=== PATIENT | female | born 1940 | race Caucasian/White ===

== ENCOUNTER 2020-01-10 10:11 | Inpatient (IN) ==
[2020-01-10] MEDS ORDERED: SODIUM CHLORIDE 0.9% 1,000 ML IV STA ×2 (10:27→14:33)
[2020-01-10] MEDS ORDERED: ROCURONIUM 100 MG/10 ML VIAL IV ONE (10:33)
[2020-01-10] MEDS ORDERED: VECURONIUM 10 MG VIAL IV ONE (10:33)
[2020-01-10] MEDS ORDERED: ETOMIDATE 20 MG/10 ML VIAL IV ONE (10:33)
[2020-01-10 10:53] LABS: ABG Base Excess 3.4 MMOL/L (-2.5-2.5); ABG HCO3 27.4 MMOL/L (20-26); ABG PCO2 34.9 MM HG (35-48); ABG PH 7.489 (7.35-7.45); ABG TCO2 23.7 MMOL/L (23-27)
[2020-01-10] MEDS ORDERED: ONDANSETRON 4 MG/2 ML VIAL IV PRN (11:21)
[2020-01-10] MEDS ORDERED: ACETAMINOPHEN 325 MG TABLET PO PRN (11:21)
[2020-01-10 11:25] LABS: Apearance,Urine CLOUDY (Clear); Bacteria,Urine Occasional /HPF (Few); Bilirubin,Urine Negative (Negative); Blood, Urine Small mg/dL (Negative); Glucose,Urine (UA) Negative (Negative); Hyaline Casts,Urine 3 /LPF (0-3); Ketones,Urine 5 mg/dL (Negative); Mucus,Urine Many /LPF (Occasional); Nitrite,Urine Negative (Negative); Protein,Urine 100 MG/DL; RBC,Urine 3 /HPF (0-4); Squamous Epithelial Cell,Urine Occasional /HPF (0-10); Urine Color Yellow (Yellow); Urine Specific Gravity 1.019 (1.001-1.035); Urine Urobilinogen < 2.0 EU/DL (0.2-1.0); WBC,Urine 1 /HPF (0-6)
[2020-01-10] MEDS ORDERED: niCARdipine INJ 25 MG in SODIUM CHLORIDE 0.9% 240 ML IV SCH (11:30)
[2020-01-10 11:35] LABS: Basophils % 0.3 % (0.0-0.8); Eosinophils % 0.2 % (0.00-10.9); Hematocrit 34.7 VOL% (35.7-47.0); Immature Granulocytes % 0.4 %; Immature Granulocytes Absolute 0.05 #; Lymphocytes # 3.1 10*3/uL (1.4-4.0); Lymphocytes % 22.2 % (21.3-54.2); Mean Corpuscular HGB Conc 29.7 GM/DL (32-36); Mean Corpuscular Volume 70.2 FL (87-102); Mean Platelet Volume 11.4 FL (9.6-12.0); Monocytes % 6.3 % (1.7-12.7); Neutrophils % 70.6 % (38.7-73.9); Platelet Count 489 T/CUMM (130-400); Red Blood Count 4.94 MC/CUMM (3.8-5.5); Red Cell Distribution Width 18.8 % (9.3-17.3); White Blood Count 13.9 T/CUMM (4-12)
[2020-01-10 11:36] LABS: Barbiturates Screen,Urine Negative (Negative); Benzodiazepines Screen,Urine Negative (Negative); Cannabinoid Screen,Urine Negative (Negative); Opiate Screen,Urine Negative (Negative); Phencyclidine Screen,Urine Negative (Negative)
[2020-01-10 11:37] LABS: PT Patient Result 10.5 SECS (9.8-11.9)
[2020-01-10 11:40] LABS: Hemoglobin 10.3 GM/DL (12.0-16.0)
[2020-01-10 11:42] LABS: Alanine Aminotransferase 19 U/L (13-56); Albumin 3.3 G/DL (3.4-5.0); Alkaline Phosphatase 87 U/L (45-117); Aspartate Amino Transferase 27 U/L (0-37); Blood Urea Nitrogen 12 MG/DL (7-18); Calcium 8.7 MG/DL (8.5-10.1); Estimated Glom Filtration Rate 90 ML/MIN; Glucose 134 MG/DL (74-106); Osmolality,Calculated 276.7 MOS/KG (273-304); Total Protein 7.5 G/DL (6.4-8.3)
[2020-01-10 11:58] LABS: Hypochromasia 2+; Microcytosis 1+
[2020-01-10 11:59] LABS: Platelet Estimate Increased
[2020-01-10] MEDS ORDERED: niCARdipine INJ 25 MG in SODIUM CHLORIDE 0.9% 240 ML IV PRN (12:00)
[2020-01-10] MEDS ORDERED: LORazepam 2 MG/1 ML VIAL IV STA (14:33)
[2020-01-10] MEDS: PANTOPRAZOLE 40 MG VIAL IV SCH (14:40)
[2020-01-10] MEDS ORDERED: MIDAZOLAM 100 MG in SODIUM CHLORIDE 0.9% 80 ML IV PRN (17:15)
[2020-01-10] MEDS: LACTATED RINGERS 1,000 ML IV SCH (17:39)
[2020-01-10] MEDS: ATORVASTATIN 80 MG TABLET PO SCH (20:37)
[2020-01-10] MEDS: AMITRIPTYLINE 50 MG TABLET PO SCH (20:37)
[2020-01-10] MEDS ORDERED: ENOXAPARIN 40 MG/0.4 ML SYRINGE SUBCUT SCH (21:00)
[2020-01-11] MEDS: LACTATED RINGERS 1,000 ML IV SCH ×2 (03:41→22:33)
[2020-01-11 04:39] LABS: ABG Base Excess 2.8 MMOL/L (-2.5-2.5); ABG HCO3 26.9 MMOL/L (20-26); ABG Oxygen Saturation 99.8 % (95-100); ABG PCO2 36.2 MM HG (35-48); ABG PH 7.471 (7.35-7.45); ABG TCO2 24.2 MMOL/L (23-27); Allen Test Positive; Pt O2 Delivery Device Ventilator
[2020-01-11 06:33] LABS: Basophils # 0.1 10*3/uL (0.0-0.2); Basophils % 0.3 % (0.0-0.8); Eosinophils # 0.1 10*3/uL (0.0-0.87); Eosinophils % 0.3 % (0.00-10.9); Hematocrit 30.8 VOL% (35.7-47.0); Hemoglobin 9.1 GM/DL (12.0-16.0); Immature Granulocytes % 0.5 %; Immature Granulocytes Absolute 0.09 #; Lymphocytes # 3.9 10*3/uL (1.4-4.0); Lymphocytes % 21.8 % (21.3-54.2); Mean Corpuscular HGB Conc 29.5 GM/DL (32-36); Mean Corpuscular Volume 70.6 FL (87-102); Mean Platelet Volume 10.8 FL (9.6-12.0); Monocytes % 9.6 % (1.7-12.7); Neutrophils % 67.5 % (38.7-73.9); Platelet Count 430 T/CUMM (130-400); Red Blood Count 4.36 MC/CUMM (3.8-5.5); Red Cell Distribution Width 18.4 % (9.3-17.3); White Blood Count 17.9 T/CUMM (4-12)
[2020-01-11 06:57] LABS: Albumin 2.5 G/DL (3.4-5.0); Bilirubin,Total 0.9 MG/DL (0.2-1.0); Calcium 7.5 MG/DL (8.5-10.1); Osmolality,Calculated 277.5 MOS/KG (273-304); Risk Ratio 3.52; Total Protein 6.3 G/DL (6.4-8.3); VLDL CHOLESTEROL 51.6 MG/DL
[2020-01-11] MEDS ORDERED: POTASSIUM CHLORIDE INJ 80 MEQ in SODIUM CHLORIDE 0.9% 1,000 ML IV ONE (08:00)
[2020-01-11] MEDS: METOPROLOL TARTRATE 25 MG TABLET PO SCH ×2 (10:24→21:25)
[2020-01-11] MEDS: PANTOPRAZOLE 40 MG VIAL IV SCH (10:31)
[2020-01-11 13:32] LABS: Troponin I 0.899 NG/ML (0.00-0.045)
[2020-01-11 16:36] LABS: Troponin I 0.798 NG/ML (0.00-0.045)
[2020-01-11] MEDS: ENOXAPARIN 80 MG/0.8 ML SYRINGE SUBCUT SCH (21:25)
[2020-01-11] MEDS: AMITRIPTYLINE 50 MG TABLET PO SCH (21:25)
[2020-01-11] MEDS: ATORVASTATIN 80 MG TABLET PO SCH (21:25)
[2020-01-12 05:00] LABS: Basophils % 0.3 % (0.0-0.8); Eosinophils # 0.2 10*3/uL (0.0-0.87); Eosinophils % 1.6 % (0.00-10.9); Hematocrit 28.4 VOL% (35.7-47.0); Hemoglobin 8.2 GM/DL (12.0-16.0); Immature Granulocytes % 0.4 %; Immature Granulocytes Absolute 0.05 #; Lymphocytes % 30.5 % (21.3-54.2); Mean Corpuscular HGB Conc 28.9 GM/DL (32-36); Mean Corpuscular Volume 71.9 FL (87-102); Mean Platelet Volume 11.5 FL (9.6-12.0); Monocytes % 9.9 % (1.7-12.7); Neutrophils % 57.3 % (38.7-73.9); Platelet Count 374 T/CUMM (130-400); Red Blood Count 3.95 MC/CUMM (3.8-5.5); Red Cell Distribution Width 18.6 % (9.3-17.3); White Blood Count 13.2 T/CUMM (4-12)
[2020-01-12 05:09] LABS: Hypochromasia 1+; Microcytosis 1+; Ovalocytes Slight; Polychromasia Slight
[2020-01-12 05:10] LABS: Platelet Estimate Normal
[2020-01-12 05:17] LABS: ABG Base Excess 0.3 MMOL/L (-2.5-2.5); ABG Oxygen Saturation 99.4 % (95-100); ABG PCO2 35.4 MM HG (35-48); ABG PH 7.449 (7.35-7.45); ABG PO2 416.1 MM HG (80-95); ABG TCO2 25.1 MMOL/L (23-27); Allen Test Positive; Pt O2 Delivery Device Ventilator
[2020-01-12 07:31] LABS: Bilirubin,Total 0.5 MG/DL (0.2-1.0); Calcium 7.5 MG/DL (8.5-10.1); Osmolality,Calculated 282.1 MOS/KG (273-304); Total Protein 5.7 G/DL (6.4-8.3)
[2020-01-12] MEDS: CLOPIDOGREL 75 MG TABLET PO SCH (08:34)
[2020-01-12] MEDS: ENOXAPARIN 80 MG/0.8 ML SYRINGE SUBCUT SCH ×2 (08:34→20:35)
[2020-01-12] MEDS: METOPROLOL TARTRATE 25 MG TABLET PO SCH ×2 (08:34→20:35)
[2020-01-12] MEDS: LACTATED RINGERS 1,000 ML IV SCH ×2 (08:38→19:06)
[2020-01-12] MEDS: PANTOPRAZOLE 40 MG VIAL IV SCH (11:47)
[2020-01-12] MEDS ORDERED: DEXTROSE 10% 250 ML BAG IV PRN (13:43)
[2020-01-12] MEDS ORDERED: GLUCAGON 1 MG VIAL IM PRN (13:43)
[2020-01-12] MEDS: INSULIN REGULAR 100 UNIT/ML SUBCUT SCH (19:06)
[2020-01-12] MEDS: ATORVASTATIN 80 MG TABLET PO SCH (20:35)
[2020-01-12] MEDS: AMITRIPTYLINE 50 MG TABLET PO SCH (20:35)
[2020-01-13] MEDS: INSULIN REGULAR 100 UNIT/ML SUBCUT SCH ×4 (00:26→18:30)
[2020-01-13 04:33] LABS: Basophils % 0.2 % (0.0-0.8); Hemoglobin 7.6 GM/DL (12.0-16.0)
[2020-01-13 04:56] LABS: ABG Base Excess 2.4 MMOL/L (-2.5-2.5); ABG HCO3 26.6 MMOL/L (20-26); ABG Oxygen Saturation 99.3 % (95-100); ABG PCO2 36.6 MM HG (35-48); ABG PH 7.462 (7.35-7.45); ABG TCO2 24.4 MMOL/L (23-27)
[2020-01-13 05:06] LABS: Alanine Aminotransferase 15 U/L (13-56); Albumin 1.9 G/DL (3.4-5.0); Alkaline Phosphatase 65 U/L (45-117); Aspartate Amino Transferase 14 U/L (0-37); Bilirubin,Total < 0.39 MG/DL (0.2-1.0); Blood Urea Nitrogen 8 MG/DL (7-18); Calcium 7.6 MG/DL (8.5-10.1); Estimated Glom Filtration Rate 105 ML/MIN; Glucose 145 MG/DL (74-106); Osmolality,Calculated 279.4 MOS/KG (273-304); Total Protein 5.7 G/DL (6.4-8.3)
[2020-01-13 05:11] LABS: Eosinophils # 0.3 10*3/uL (0.0-0.87); Hematocrit 26.7 VOL% (35.7-47.0); Immature Granulocytes % 0.6 %; Immature Granulocytes Absolute 0.08 #; Lymphocytes # 3.5 10*3/uL (1.4-4.0); Lymphocytes % 24.9 % (21.3-54.2); Mean Corpuscular HGB Conc 28.5 GM/DL (32-36); Mean Platelet Volume 11.6 FL (9.6-12.0); Monocytes % 9.1 % (1.7-12.7); Neutrophils % 63.2 % (38.7-73.9); Platelet Count 355 T/CUMM (130-400); Red Blood Count 3.61 MC/CUMM (3.8-5.5); Red Cell Distribution Width 18.8 % (9.3-17.3)
[2020-01-13] MEDS: LACTATED RINGERS 1,000 ML IV SCH (05:15)
[2020-01-13] MEDS ORDERED: MAGNESIUM SULF RIDER 4 GM in PREMIX 1 EACH IV PRN (07:31)
[2020-01-13] MEDS ORDERED: MAGNESIUM SULF RIDER 2 GM in PREMIX 1 EACH IV PRN (07:31)
[2020-01-13] MEDS: CLOPIDOGREL 75 MG TABLET PO SCH (09:15)
[2020-01-13] MEDS: METOPROLOL TARTRATE 25 MG TABLET PO SCH ×2 (09:15→20:46)
[2020-01-13] MEDS: POTASSIUM CHLORIDE 20 MEQ/15 ML UDCUP PER TUBE PRN ×4 (09:15→16:20)
[2020-01-13] MEDS: ENOXAPARIN 80 MG/0.8 ML SYRINGE SUBCUT SCH ×2 (09:28→20:46)
[2020-01-13] MEDS: PANTOPRAZOLE 40 MG VIAL IV SCH (10:29)
[2020-01-13 11:05] LABS: % Iron Saturation 2.3 % (18-50)
[2020-01-13] MEDS: AMITRIPTYLINE 50 MG TABLET PO SCH (20:46)
[2020-01-13] MEDS: ATORVASTATIN 80 MG TABLET PO SCH (20:46)
[2020-01-14] MEDS: INSULIN REGULAR 100 UNIT/ML SUBCUT SCH ×4 (00:20→18:12)
[2020-01-14 04:23] LABS: Basophils % 0.2 % (0.0-0.8); Eosinophils # 0.3 10*3/uL (0.0-0.87); Eosinophils % 2.6 % (0.00-10.9); Hematocrit 27.3 VOL% (35.7-47.0); Hemoglobin 7.8 GM/DL (12.0-16.0); Immature Granulocytes % 0.4 %; Immature Granulocytes Absolute 0.05 #; Lymphocytes # 3.2 10*3/uL (1.4-4.0); Lymphocytes % 25.8 % (21.3-54.2); Mean Corpuscular HGB Conc 28.6 GM/DL (32-36); Mean Corpuscular Volume 74.2 FL (87-102); Mean Platelet Volume 11.6 FL (9.6-12.0); Monocytes % 11.1 % (1.7-12.7); Neutrophils % 59.9 % (38.7-73.9); Platelet Count 371 T/CUMM (130-400); Red Blood Count 3.68 MC/CUMM (3.8-5.5); Red Cell Distribution Width 19.6 % (9.3-17.3); White Blood Count 12.2 T/CUMM (4-12)
[2020-01-14 04:45] LABS: Hypochromasia 1+; Platelet Estimate Adequate
[2020-01-14 04:53] LABS: Calcium 7.5 MG/DL (8.5-10.1); Osmolality,Calculated 276.7 MOS/KG (273-304)
[2020-01-14 05:27] LABS: ABG Base Excess 1.9 MMOL/L (-2.5-2.5); ABG HCO3 26.7 MMOL/L (20-26); ABG Oxygen Saturation 98.5 % (95-100); ABG PCO2 42.6 MM HG (35-48); ABG PH 7.415 (7.35-7.45); Allen Test Positive; Pt O2 Delivery Device Ventilator
[2020-01-14] MEDS ORDERED: hydrALAZINE 20 MG/1 ML VIAL IV PRN (06:50)
[2020-01-14] MEDS: METOPROLOL TARTRATE 50 MG TABLET PO SCH ×2 (08:38→20:07)
[2020-01-14] MEDS: PANTOPRAZOLE 40 MG VIAL IV SCH (13:01)
[2020-01-14] MEDS: DEXAMETHASONE 4 MG/1 ML VIAL IV SCH (18:12)
[2020-01-14] MEDS: PIPERACILLIN/TAZOBACTAM 3,375 MG in SODIUM CHLORIDE 0.9% 100 ML IV SCH (18:12)
[2020-01-14] MEDS: ATORVASTATIN 80 MG TABLET PO SCH (20:06)
[2020-01-14] MEDS: AMITRIPTYLINE 50 MG TABLET PO SCH (20:07)
[2020-01-15] MEDS: INSULIN REGULAR 100 UNIT/ML SUBCUT SCH ×4 (02:13→19:02)
[2020-01-15] MEDS: PIPERACILLIN/TAZOBACTAM 3,375 MG in SODIUM CHLORIDE 0.9% 100 ML IV SCH ×3 (02:14→18:40)
[2020-01-15 05:03] LABS: ABG Base Excess 4.5 MMOL/L (-2.5-2.5); ABG HCO3 28.4 MMOL/L (20-26); ABG Oxygen Saturation 98.7 % (95-100); ABG PCO2 43.7 MM HG (35-48); ABG PH 7.433 (7.35-7.45); Allen Test Positive; Pt O2 Delivery Device Ventilator
[2020-01-15 06:26] LABS: Calcium 7.6 MG/DL (8.5-10.1); Osmolality,Calculated 288.4 MOS/KG (273-304)
[2020-01-15] MEDS ORDERED: INSULIN GLARGINE 100 UNIT/ML SUBCUT ONE (07:49)
[2020-01-15 08:43] LABS: Basophils % 0.1 % (0.0-0.8); Eosinophils % 0.1 % (0.00-10.9); Hematocrit 27.1 VOL% (35.7-47.0); Hemoglobin 7.7 GM/DL (12.0-16.0); Immature Granulocytes % 0.8 %; Immature Granulocytes Absolute 0.08 #; Lymphocytes % 9.9 % (21.3-54.2); Mean Corpuscular HGB Conc 28.4 GM/DL (32-36); Mean Corpuscular Volume 73.6 FL (87-102); Mean Platelet Volume 12.1 FL (9.6-12.0); Monocytes % 5.6 % (1.7-12.7); Neutrophils % 83.5 % (38.7-73.9); Platelet Count 341 T/CUMM (130-400); Red Blood Count 3.68 MC/CUMM (3.8-5.5); Red Cell Distribution Width 19.6 % (9.3-17.3); White Blood Count 9.8 T/CUMM (4-12)
[2020-01-15] MEDS: METOPROLOL TARTRATE 50 MG TABLET PO SCH ×2 (09:17→20:00)
[2020-01-15 10:54] LABS: Hypochromasia 4+
[2020-01-15 10:55] LABS: Giant Platelets Few; Microcytosis 2+; Platelet Estimate Increased; Polychromasia Slight
[2020-01-15] MEDS: PANTOPRAZOLE 40 MG VIAL IV SCH (12:20)
[2020-01-15] MEDS: DEXAMETHASONE 4 MG/1 ML VIAL IV SCH (18:40)
[2020-01-15] MEDS: AMITRIPTYLINE 50 MG TABLET PO SCH (20:00)
[2020-01-15] MEDS: ATORVASTATIN 80 MG TABLET PO SCH (20:00)
[2020-01-15 20:55] LABS: Basophils % 0.2 % (0.0-0.8); Eosinophils # 0.1 10*3/uL (0.0-0.87); Eosinophils % 0.7 % (0.00-10.9); Hematocrit 25.5 VOL% (35.7-47.0); Hemoglobin 7.3 GM/DL (12.0-16.0); Immature Granulocytes % 0.4 %; Immature Granulocytes Absolute 0.05 #; Lymphocytes # 2.4 10*3/uL (1.4-4.0); Mean Corpuscular HGB Conc 28.6 GM/DL (32-36); Mean Corpuscular Volume 73.5 FL (87-102); Monocytes % 11.3 % (1.7-12.7); Neutrophils % 66.4 % (38.7-73.9); Platelet Count 364 T/CUMM (130-400); Red Blood Count 3.47 MC/CUMM (3.8-5.5); Red Cell Distribution Width 19.4 % (9.3-17.3); White Blood Count 11.4 T/CUMM (4-12)
[2020-01-16] MEDS: INSULIN REGULAR 100 UNIT/ML SUBCUT SCH ×4 (00:44→18:16)
[2020-01-16] MEDS: PIPERACILLIN/TAZOBACTAM 3,375 MG in SODIUM CHLORIDE 0.9% 100 ML IV SCH ×3 (02:13→18:16)
[2020-01-16 04:13] LABS: Basophils % 0.1 % (0.0-0.8); Hemoglobin 7.8 GM/DL (12.0-16.0); Immature Granulocytes % 1.1 %; Immature Granulocytes Absolute 0.11 #; Lymphocytes # 1.5 10*3/uL (1.4-4.0); Lymphocytes % 14.4 % (21.3-54.2); Mean Corpuscular HGB Conc 28.9 GM/DL (32-36); Mean Corpuscular Volume 71.6 FL (87-102); Mean Platelet Volume 11.6 FL (9.6-12.0); Monocytes % 6.1 % (1.7-12.7); NRBC # 0.02 10*3/uL; Neutrophils % 78.3 % (38.7-73.9); Platelet Count 378 T/CUMM (130-400); Red Blood Count 3.77 MC/CUMM (3.8-5.5); Red Cell Distribution Width 19.4 % (9.3-17.3); White Blood Count 10.2 T/CUMM (4-12)
[2020-01-16 04:29] LABS: Osmolality,Calculated 286.4 MOS/KG (273-304)
[2020-01-16 05:06] LABS: ABG Base Excess 6.6 MMOL/L (-2.5-2.5); ABG HCO3 30.5 MMOL/L (20-26); ABG Oxygen Saturation 98.8 % (95-100); ABG PH 7.453 (7.35-7.45); Allen Test Positive; Pt O2 Delivery Device Ventilator
[2020-01-16] MEDS: METOPROLOL TARTRATE 50 MG TABLET PO SCH ×2 (08:46→20:11)
[2020-01-16] MEDS: PANTOPRAZOLE 40 MG VIAL IV SCH (11:44)
[2020-01-16] MEDS: DEXAMETHASONE 4 MG/1 ML VIAL IV SCH (18:15)
[2020-01-16] MEDS: ATORVASTATIN 80 MG TABLET PO SCH (20:11)
[2020-01-16] MEDS: AMITRIPTYLINE 50 MG TABLET PO SCH (20:11)
[2020-01-16] MEDS: INSULIN GLARGINE 100 UNIT/ML SUBCUT SCH (20:12)
[2020-01-17] MEDS: INSULIN REGULAR 100 UNIT/ML SUBCUT SCH ×4 (00:48→17:20)
[2020-01-17] MEDS: PIPERACILLIN/TAZOBACTAM 3,375 MG in SODIUM CHLORIDE 0.9% 100 ML IV SCH ×3 (01:56→17:41)
[2020-01-17 03:49] LABS: Basophils % 0.2 % (0.0-0.8); Eosinophils % 0.1 % (0.00-10.9); Hematocrit 27.1 VOL% (35.7-47.0); Hemoglobin 7.7 GM/DL (12.0-16.0); Immature Granulocytes % 1.7 %; Immature Granulocytes Absolute 0.18 #; Lymphocytes # 1.7 10*3/uL (1.4-4.0); Lymphocytes % 16.3 % (21.3-54.2); Mean Corpuscular HGB Conc 28.4 GM/DL (32-36); Mean Corpuscular Volume 73.4 FL (87-102); Mean Platelet Volume 12.1 FL (9.6-12.0); Monocytes % 8.5 % (1.7-12.7); NRBC # 0.03 10*3/uL; Neutrophils % 73.2 % (38.7-73.9); Platelet Count 390 T/CUMM (130-400); Red Blood Count 3.69 MC/CUMM (3.8-5.5); Red Cell Distribution Width 19.3 % (9.3-17.3); White Blood Count 10.5 T/CUMM (4-12)
[2020-01-17 04:08] LABS: Osmolality,Calculated 286.5 MOS/KG (273-304)
[2020-01-17 04:38] LABS: ABG Base Excess 8.6 MMOL/L (-2.5-2.5); ABG HCO3 33.3 MMOL/L (20-26); ABG Oxygen Saturation 98.1 % (95-100); ABG PCO2 47.5 MM HG (35-48); ABG PH 7.463 (7.35-7.45); ABG PO2 118.2 MM HG (80-95); ABG TCO2 34.7 MMOL/L (23-27); Allen Test Positive; Pt O2 Delivery Device Ventilator
[2020-01-17] MEDS: CLOPIDOGREL 75 MG TABLET PO SCH (08:37)
[2020-01-17] MEDS: METOPROLOL TARTRATE 50 MG TABLET PO SCH ×2 (08:37→20:39)
[2020-01-17] MEDS: INSULIN GLARGINE 100 UNIT/ML SUBCUT SCH (08:40)
[2020-01-17] MEDS: PANTOPRAZOLE 40 MG VIAL IV SCH (10:30)
[2020-01-17] MEDS: DEXAMETHASONE 4 MG/1 ML VIAL IV SCH (17:41)
[2020-01-17] MEDS ORDERED: SALIVA SUBSTITUTE SPRAY 60 ML CAN SWISH/SPIT PRN (18:27)
[2020-01-17] MEDS: ATORVASTATIN 80 MG TABLET PO SCH (20:38)
[2020-01-17] MEDS: AMITRIPTYLINE 50 MG TABLET PO SCH (20:39)
[2020-01-18] MEDS: INSULIN REGULAR 100 UNIT/ML SUBCUT SCH ×4 (00:55→18:06)
[2020-01-18] MEDS: PIPERACILLIN/TAZOBACTAM 3,375 MG in SODIUM CHLORIDE 0.9% 100 ML IV SCH ×3 (02:15→21:51)
[2020-01-18 03:39] LABS: Allen Test Positive; Pt O2 Delivery Device Ventilator
[2020-01-18 03:41] LABS: ABG Base Excess 9.2 MMOL/L (-2.5-2.5); ABG HCO3 33.7 MMOL/L (20-26); ABG Oxygen Saturation 98.5 % (95-100); ABG PCO2 46.2 MM HG (35-48); ABG PH 7.481 (7.35-7.45); ABG PO2 131.1 MM HG (80-95); ABG TCO2 35.1 MMOL/L (23-27)
[2020-01-18 06:56] LABS: Basophils % 0.2 % (0.0-0.8); Eosinophils % 0.1 % (0.00-10.9); Hematocrit 28.8 VOL% (35.7-47.0); Hemoglobin 8.3 GM/DL (12.0-16.0); Immature Granulocytes % 1.8 %; Immature Granulocytes Absolute 0.18 #; Lymphocytes # 1.8 10*3/uL (1.4-4.0); Lymphocytes % 18.5 % (21.3-54.2); Mean Corpuscular HGB Conc 28.8 GM/DL (32-36); Mean Platelet Volume 12.1 FL (9.6-12.0); Monocytes % 9.5 % (1.7-12.7); NRBC # 0.03 10*3/uL; Neutrophils % 69.9 % (38.7-73.9); Platelet Count 400 T/CUMM (130-400); Red Cell Distribution Width 19.2 % (9.3-17.3); White Blood Count 9.8 T/CUMM (4-12)
[2020-01-18 07:07] LABS: Hypochromasia 2+
[2020-01-18 07:08] LABS: Microcytosis 2+
[2020-01-18 07:09] LABS: Platelet Estimate Normal
[2020-01-18 07:24] LABS: Calcium 8.3 MG/DL (8.5-10.1); Osmolality,Calculated 281.7 MOS/KG (273-304)
[2020-01-18 07:26] LABS: Alanine Aminotransferase 39 U/L (13-56); Alkaline Phosphatase 91 U/L (45-117); Aspartate Amino Transferase 34 U/L (0-37); Bilirubin,Total < 0.39 MG/DL (0.2-1.0); Blood Urea Nitrogen 19 MG/DL (7-18); Calcium 8.1 MG/DL (8.5-10.1); Estimated Glom Filtration Rate 99 ML/MIN; Glucose 186 MG/DL (74-106); Osmolality,Calculated 283.5 MOS/KG (273-304); Total Protein 6.5 G/DL (6.4-8.3)
[2020-01-18] MEDS: CLOPIDOGREL 75 MG TABLET PO SCH (08:33)
[2020-01-18] MEDS: METOPROLOL TARTRATE 50 MG TABLET PO SCH ×2 (08:33→20:01)
[2020-01-18] MEDS: INSULIN GLARGINE 100 UNIT/ML SUBCUT SCH (08:33)
[2020-01-18] MEDS: PANTOPRAZOLE 40 MG VIAL IV SCH (10:30)
[2020-01-18] MEDS ORDERED: MORPHINE 4 MG/1 ML VIAL IV PRN (18:00)
[2020-01-18] MEDS: DEXAMETHASONE 4 MG/1 ML VIAL IV SCH (18:24)
[2020-01-18] MEDS: AMITRIPTYLINE 50 MG TABLET PO SCH (20:01)
[2020-01-18] MEDS: ATORVASTATIN 80 MG TABLET PO SCH (20:01)
[2020-01-19] MEDS: INSULIN REGULAR 100 UNIT/ML SUBCUT SCH ×4 (01:28→17:40)
[2020-01-19 03:47] LABS: Basophils % 0.2 % (0.0-0.8); Eosinophils % 0.1 % (0.00-10.9); Hematocrit 31.1 VOL% (35.7-47.0); Immature Granulocytes % 1.6 %; Immature Granulocytes Absolute 0.25 #; Lymphocytes # 2.5 10*3/uL (1.4-4.0); Lymphocytes % 15.6 % (21.3-54.2); Mean Corpuscular HGB Conc 28.3 GM/DL (32-36); Mean Corpuscular Volume 73.3 FL (87-102); Mean Platelet Volume 11.6 FL (9.6-12.0); Monocytes % 7.1 % (1.7-12.7); NRBC # 0.03 10*3/uL; Neutrophils % 75.4 % (38.7-73.9); Platelet Count 505 T/CUMM (130-400); Red Blood Count 4.24 MC/CUMM (3.8-5.5); Red Cell Distribution Width 19.4 % (9.3-17.3); White Blood Count 15.8 T/CUMM (4-12)
[2020-01-19 03:58] LABS: ABG Base Excess 9.9 MMOL/L (-2.5-2.5); ABG HCO3 33.7 MMOL/L (20-26); ABG Oxygen Saturation 99.6 % (95-100); ABG PCO2 50.1 MM HG (35-48); ABG PH 7.455 (7.35-7.45); ABG TCO2 32.4 MMOL/L (23-27); Allen Test Positive; Pt O2 Delivery Device Simple Mask
[2020-01-19 04:14] LABS: Calcium 8.6 MG/DL (8.5-10.1); Osmolality,Calculated 283.5 MOS/KG (273-304)
[2020-01-19 04:20] LABS: Hemoglobin 8.9 GM/DL (12.0-16.0)
[2020-01-19 04:31] LABS: Hypochromasia 1+; Microcytosis Slight; Platelet Estimate Increased
[2020-01-19] MEDS: PIPERACILLIN/TAZOBACTAM 3,375 MG in SODIUM CHLORIDE 0.9% 100 ML IV SCH ×3 (05:53→22:10)
[2020-01-19] MEDS: INSULIN GLARGINE 100 UNIT/ML SUBCUT SCH (08:46)
[2020-01-19] MEDS: METOPROLOL TARTRATE 50 MG TABLET PO SCH ×2 (08:46→21:27)
[2020-01-19] MEDS: CLOPIDOGREL 75 MG TABLET PO SCH (08:46)
[2020-01-19] MEDS: PANTOPRAZOLE 40 MG VIAL IV SCH (12:40)
[2020-01-19] MEDS: DEXAMETHASONE 4 MG/1 ML VIAL IV SCH (17:41)
[2020-01-19] MEDS: AMITRIPTYLINE 50 MG TABLET PO SCH (21:27)
[2020-01-19] MEDS: ATORVASTATIN 80 MG TABLET PO SCH (21:27)
[2020-01-20] MEDS: INSULIN REGULAR 100 UNIT/ML SUBCUT SCH ×4 (00:27→18:35)
[2020-01-20 05:11] LABS: Calcium 8.2 MG/DL (8.5-10.1); Osmolality,Calculated 278.8 MOS/KG (273-304)
[2020-01-20] MEDS: PIPERACILLIN/TAZOBACTAM 3,375 MG in SODIUM CHLORIDE 0.9% 100 ML IV SCH ×3 (05:43→22:25)
[2020-01-20 06:18] LABS: Basophils % 0.2 % (0.0-0.8); Eosinophils # 0.1 10*3/uL (0.0-0.87); Eosinophils % 0.5 % (0.00-10.9); Hematocrit 30.7 VOL% (35.7-47.0); Immature Granulocytes % 1.2 %; Immature Granulocytes Absolute 0.17 #; Lymphocytes # 2.3 10*3/uL (1.4-4.0); Lymphocytes % 15.3 % (21.3-54.2); Mean Corpuscular Volume 71.7 FL (87-102); Mean Platelet Volume 11.6 FL (9.6-12.0); Monocytes % 7.3 % (1.7-12.7); NRBC # 0.02 10*3/uL; Neutrophils % 75.5 % (38.7-73.9); Platelet Count 502 T/CUMM (130-400); Red Blood Count 4.28 MC/CUMM (3.8-5.5); Red Cell Distribution Width 19.2 % (9.3-17.3); White Blood Count 14.7 T/CUMM (4-12)
[2020-01-20 06:21] LABS: Hemoglobin 8.9 GM/DL (12.0-16.0)
[2020-01-20 06:27] LABS: Hypochromasia 1+; Microcytosis 1+; Platelet Estimate Adequate
[2020-01-20] MEDS: CLOPIDOGREL 75 MG TABLET PO SCH (09:16)
[2020-01-20] MEDS: INSULIN GLARGINE 100 UNIT/ML SUBCUT SCH (09:16)
[2020-01-20] MEDS: METOPROLOL TARTRATE 50 MG TABLET PO SCH ×2 (09:16→21:23)
[2020-01-20] MEDS: PANTOPRAZOLE 40 MG VIAL IV SCH (13:02)
[2020-01-20] MEDS: DEXAMETHASONE 4 MG/1 ML VIAL IV SCH (17:32)
[2020-01-20] MEDS: AMITRIPTYLINE 50 MG TABLET PO SCH (21:23)
[2020-01-20] MEDS: ATORVASTATIN 80 MG TABLET PO SCH (21:23)
[2020-01-21] MEDS: INSULIN REGULAR 100 UNIT/ML SUBCUT SCH ×4 (00:40→17:34)
[2020-01-21] MEDS: PIPERACILLIN/TAZOBACTAM 3,375 MG in SODIUM CHLORIDE 0.9% 100 ML IV SCH ×2 (06:00→17:35)
[2020-01-21 06:45] LABS: Calcium 8.6 MG/DL (8.5-10.1); Osmolality,Calculated 284.5 MOS/KG (273-304)
[2020-01-21 07:54] LABS: Basophils % 0.2 % (0.0-0.8); Eosinophils # 0.1 10*3/uL (0.0-0.87); Eosinophils % 0.5 % (0.00-10.9); Hematocrit 32.9 VOL% (35.7-47.0); Hemoglobin 9.4 GM/DL (12.0-16.0); Immature Granulocytes % 1.4 %; Immature Granulocytes Absolute 0.22 #; Lymphocytes # 2.8 10*3/uL (1.4-4.0); Lymphocytes % 18.1 % (21.3-54.2); Mean Corpuscular HGB Conc 28.6 GM/DL (32-36); Mean Corpuscular Volume 72.8 FL (87-102); Mean Platelet Volume 11.3 FL (9.6-12.0); Monocytes % 8.2 % (1.7-12.7); Neutrophils % 71.6 % (38.7-73.9); Red Blood Count 4.52 MC/CUMM (3.8-5.5); Red Cell Distribution Width 19.6 % (9.3-17.3); White Blood Count 15.3 T/CUMM (4-12)
[2020-01-21 08:37] LABS: Anisocytosis 2+; Platelet Count 608 T/CUMM (130-400); Platelet Estimate Increased
[2020-01-21 08:38] LABS: Polychromasia Slight
[2020-01-21] MEDS: INSULIN GLARGINE 100 UNIT/ML SUBCUT SCH (09:50)
[2020-01-21] MEDS: METOPROLOL TARTRATE 50 MG TABLET PO SCH ×2 (09:50→21:37)
[2020-01-21] MEDS: CLOPIDOGREL 75 MG TABLET PO SCH (09:50)
[2020-01-21] MEDS: DEXAMETHASONE 4 MG/1 ML VIAL IV SCH (09:50)
[2020-01-21] MEDS: PANTOPRAZOLE 40 MG VIAL IV SCH (12:04)
[2020-01-21] MEDS: ATORVASTATIN 80 MG TABLET PO SCH (21:37)
[2020-01-21] MEDS: AMITRIPTYLINE 50 MG TABLET PO SCH (21:37)
[2020-01-22] MEDS: INSULIN REGULAR 100 UNIT/ML SUBCUT SCH ×4 (00:36→17:04)
[2020-01-22] MEDS: PIPERACILLIN/TAZOBACTAM 3,375 MG in SODIUM CHLORIDE 0.9% 100 ML IV SCH (02:30)
[2020-01-22 07:02] LABS: Calcium 8.3 MG/DL (8.5-10.1); Osmolality,Calculated 288.3 MOS/KG (273-304)
[2020-01-22 07:13] LABS: Basophils # 0.1 10*3/uL (0.0-0.2); Basophils % 0.3 % (0.0-0.8); Eosinophils # 0.4 10*3/uL (0.0-0.87); Eosinophils % 2.3 % (0.00-10.9); Immature Granulocytes Absolute 0.18 #; Lymphocytes # 4.3 10*3/uL (1.4-4.0); Lymphocytes % 24.8 % (21.3-54.2); Mean Corpuscular HGB Conc 28.1 GM/DL (32-36); Mean Corpuscular Volume 72.4 FL (87-102); Mean Platelet Volume 11.2 FL (9.6-12.0); Monocytes % 8.5 % (1.7-12.7); Neutrophils % 63.1 % (38.7-73.9); Platelet Count 597 T/CUMM (130-400); Red Blood Count 4.42 MC/CUMM (3.8-5.5); Red Cell Distribution Width 19.9 % (9.3-17.3); White Blood Count 17.3 T/CUMM (4-12)
[2020-01-22 07:28] LABS: Eosinophils 5 % (0-10); Hypochromasia 1+; Lymphocytes 23 % (20-55); Microcytosis Slight; Platelet Estimate Adequate; Segmented Neutrophils 69 % (50-85); Total Cells Counted 100
[2020-01-22] MEDS: DEXAMETHASONE 4 MG/1 ML VIAL IV SCH (09:18)
[2020-01-22] MEDS: CLOPIDOGREL 75 MG TABLET PO SCH (09:19)
[2020-01-22] MEDS: INSULIN GLARGINE 100 UNIT/ML SUBCUT SCH (09:19)
[2020-01-22] MEDS: METOPROLOL TARTRATE 50 MG TABLET PO SCH ×2 (09:19→21:12)
[2020-01-22] MEDS: PANTOPRAZOLE 40 MG VIAL IV SCH (11:57)
[2020-01-22] MEDS: ATORVASTATIN 80 MG TABLET PO SCH (21:12)
[2020-01-22] MEDS: AMITRIPTYLINE 50 MG TABLET PO SCH (21:12)
[2020-01-23] MEDS: INSULIN REGULAR 100 UNIT/ML SUBCUT SCH ×2 (01:30→06:08)
[2020-01-23 06:53] LABS: Basophils # 0.1 10*3/uL (0.0-0.2); Basophils % 0.2 % (0.0-0.8); Eosinophils # 0.3 10*3/uL (0.0-0.87); Eosinophils % 1.3 % (0.00-10.9); Hematocrit 33.9 VOL% (35.7-47.0); Immature Granulocytes % 0.9 %; Immature Granulocytes Absolute 0.18 #; Lymphocytes # 3.9 10*3/uL (1.4-4.0); Lymphocytes % 18.8 % (21.3-54.2); Mean Corpuscular HGB Conc 29.5 GM/DL (32-36); Mean Corpuscular Volume 70.9 FL (87-102); Mean Platelet Volume 10.7 FL (9.6-12.0); Monocytes % 8.8 % (1.7-12.7); Platelet Count 718 T/CUMM (130-400); Red Blood Count 4.78 MC/CUMM (3.8-5.5); Red Cell Distribution Width 19.9 % (9.3-17.3); White Blood Count 20.8 T/CUMM (4-12)
[2020-01-23 07:27] LABS: Calcium 8.6 MG/DL (8.5-10.1); Hypochromasia 1+; Microcytosis Slight; Osmolality,Calculated 283.7 MOS/KG (273-304); Platelet Estimate Increased
[2020-01-23] MEDS ORDERED: LORazepam 2 MG/1 ML VIAL IV PRN (08:17)
[2020-01-23 12:31] VITALS: BP 136/85
[2020-01-24] MEDS: ACETAMINOPHEN 650 MG SUPP RECTAL PRN ×2 (02:28→06:12)
[2020-01-24 06:37] LABS: Calcium 8.8 MG/DL (8.5-10.1); Osmolality,Calculated 294.5 MOS/KG (273-304)
[2020-01-24 07:01] LABS: Basophils # 0.1 10*3/uL (0.0-0.2); Basophils % 0.2 % (0.0-0.8); Eosinophils # 0.1 10*3/uL (0.0-0.87); Eosinophils % 0.2 % (0.00-10.9); Hematocrit 34.3 VOL% (35.7-47.0); Immature Granulocytes Absolute 0.31 #; Lymphocytes # 2.9 10*3/uL (1.4-4.0); Lymphocytes % 9.1 % (21.3-54.2); Mean Corpuscular HGB Conc 29.7 GM/DL (32-36); Mean Platelet Volume 10.8 FL (9.6-12.0); Monocytes % 5.7 % (1.7-12.7); Neutrophils % 83.8 % (38.7-73.9); Platelet Count 731 T/CUMM (130-400); Red Cell Distribution Width 20.5 % (9.3-17.3); White Blood Count 32.1 T/CUMM (4-12)
[2020-01-24 07:04] LABS: Hemoglobin 10.2 GM/DL (12.0-16.0)
[2020-01-24 07:33] LABS: Lymphocytes 13 % (20-55); Platelet Estimate Increased; Segmented Neutrophils 82 % (50-85); Total Cells Counted 100
[2020-01-24 07:34] LABS: Hypochromasia 1+; Microcytosis 1+; Ovalocytes Slight
== END 2020-01-24 12:42 | disposition hospice, inpatient (51) | DRG 207 ==
LOC: EDBD → EDUNIT# → N.ED 10:11 → SUATTDRO 11:21 → N.ICU 11:21 → N.CC 01-11 23:52 → N.2E 01-20 15:41
PROVIDERS: ADMIT Family Medicine; ATTEND Internal Medicine

== ENCOUNTER 2020-01-24 12:48 | Inpatient (IN) ==
[2020-01-24] MEDS: MORPHINE 4 MG/1 ML VIAL IV PRN ×2 (13:28→17:44)
[2020-01-24] MEDS: LORazepam 2 MG/1 ML VIAL IV PRN ×2 (15:53→22:16)
== END 2020-01-24 23:50 | disposition expired | DRG 951 ==
LOC: N.2E 12:48
PROVIDERS: ADMIT Internal Medicine; ATTEND Internal Medicine